=== PATIENT | female | born 1980 | race Caucasian/White ===

== ENCOUNTER 2022-03-06 18:22 | Emergency (ER) | payer BC, SELFPAY ==
[2022-03-06 18:37] VITALS: BP 108/76; PULSE 91; TEMP 36.2; O2SAT 99; BMI 22.6
--- NOTE | 2022-03-06 18:54 | ED.NAVMDI ---
HPI - Nausea/Vomiting/Diarrhea General Chief complaint: Nausea/Vomiting Stated complaint: Dehydration, cant keep anything down Time Seen by Provider: 03/06/22 18:28 History of Present Illness HPI Narrative: This 41-year-old female is in reporting diarrhea with some nausea and vomiting that began yesterday. She states that Ng she puts in her mouth comes out 1 way or another. She does report a dry mouth but does not have any fever or blood in the toilet. Prior to this she was in good health. She does report diffuse abdominal pain stent. She has not been on antibiotics recently. Related Data Home Medications Medication Instructions Recorded Confirmed gabapentin 600 mg tablet 600 mg PO TID 03/06/22 03/06/22 venlafaxine 150 mg tablet,extended 150 mg PO DAILY 03/06/22 03/06/22 release 24 hr Allergies Allergy/AdvReac Type Severity Reaction Status Date / Time Sulfa (Sulfonamide Allergy Intermediate Verified 03/06/22 18:42 Antibiotics) Review of Systems Status of ROS: Reports: 10 or more systems reviewed and unremarkable except as noted in History and below Narrative: Constitutional: No fevers, no weight gain or loss. Eyes: No discharge. No vision changes. HENT: No congestion, no sore throat, no ear pain. Cardiovascular: No chest pain, no palpitations. Respiratory: No shortness of breath, no wheezes, no cough. Gastrointestinal: Diffuse abdominal pain. Diarrhea with some nausea and vomiting. Genitourinary: No dysuria, no hematuria. Musculoskeletal: Normal range of motion. Skin: No rashes, no pruritis. Neurological: No dizziness, weakness, sensory change, speech change. Endo/Heme/Allergies: No bruising or bleeding. No polydipsia. Pysch: no suicidality, no anxiety, no insomnia. All other systems reviewed and are negative. PFSH PFS Social History Smoking Status: Never smoker How often do you have a drink containing alcohol: monthly or less AUDIT-C Alcohol total score: 1 Non-prescribed substance use: denies use Exam Narrative: Exam Narrative: Constitutional: Well-developed, well-nourished, no acute distress. HEENT: Normocephalic, atraumatic. Neck: Normal range of motion. Nontender. Supple. Heart: Regular. No murmurs. Normal rate. Intact distal pulses. Lungs: Clear to auscultation. No chest discomfort. No wheezes, rhonchi, or rales. Abdomen: Normal bowel sounds. Diffuse tenderness. She reports some tenderness with rebound but is not showing distinct rebound symptoms on exam. No particular tenderness when palpating at McBurney's point or over her gallbladder. Genitalia: Deferred. Back: No midline tenderness. Normal range of motion. Extremities: Normal range of motion. No injury. Skin: Intact. No rash. Warm. No erythema or pallor. Neurologic: No altered sensation. No weakness. Alert and oriented. Psychiatric: No suicidality. No anxiety or depression. No insomnia. Nursing notes and vitals signs are reviewed. Const: Vital Signs, click to edit/add: Vital Signs - 24 hr 03/06/22 18:37 Temperature 97.1 F L Pulse Rate [Pulse Oximeter] 91 Blood Pressure [Ri ght Upper Arm] 108/76 Pulse Oximetry 99 Oxygen Delivery Me thod Room Air Course Vital Signs Vital signs: Initial Vital Signs Temperature 97.1 F L 03/06/22 18:37 Temperature Source Temporal Artery Scan 03/06/22 18:37 Pulse Rate 91 03/06/22 18:37 Blood Pressure 108/76 03/06/22 18:37 Blood Pressure Mean 86 03/06/22 18:37 Blood Pressure Position Supine 03/06/22 18:37 Pulse Oximetry 99 03/06/22 18:37 Oxygen Delivery Method 03/06/22 18:37 Vital Signs Temperature 97.1 F L 03/06/22 18:37 Pulse Rate 91 03/06/22 18:37 Blood Pressure 108/76 03/06/22 18:37 Pulse Oximetry 99 03/06/22 18:37 Oxygen Delivery Method 03/06/22 18:37 Temperature 97.1 F L 03/06/22 18:37 Pulse Rate 91 03/06/22 18:37 Blood Pressure 108/76 03/06/22 18:37 Pulse Oximetry 99 03/06/22 18:37 Oxygen Delivery Method 03/06/22 18:37 MDM - Nausea/Vomiting/Diarrhea MDM Narrative Medical decision making narrative: This patient comes in nausea, vomiting, and diarrhea since yesterday. She was beginning to feel lightheaded. She does not report any fevers. I did discuss imaging options which the patient declined in a process of shared decision making. IV fluids and labs were drawn which returned with essentially normal findings. The patient received Zofran intravenously also. She states that she is feeling is okay to return home. She did receive a person Zofran. Lab Data Labs: Lab Results 03/06/22 03/06/22 Range/Units 19:20 19:20 WBC 7.45 (4.50-11.00) K/uL RBC 4.84 (4.00-5.20) m/uL Hgb 14.8 (12.0-16.0) gm/dL Hct 42.8 (33.0-51.0) % MCV 88 (80-100) fL MCH 31 (26-34) pg MCHC 35 (32-36) gm/dL RDW Coeff of [place] 12.7 (11.5-15.5) % Plt Count 244 (140-440) K/uL Neut % (Auto) 89.5 H (42.0-72.0) % Lymph % (Auto) 4.2 L (20-44) % [place] % (Auto) 5.9 (0.0-11.0) % Eos % (Auto) 0.0 (0.0-7.0) % Baso % (Auto) 0.3 (0.0-3.0) % Neut # (Auto) 6.70 (1.7-7.0) K/uL Lymph # (Auto) 0.30 L (0.90-2.90) K/uL [place] # (Auto) 0.40 (0.00-0.90) K/UL Eos # (Auto) 0.00 (0.00-0.50) K/uL Baso # (Auto) 0.02 (0.00-0.30) K/uL Abs Immat Gran (auto) 0.01 (0.00-0.30) K/uL Sodium 133 L (135-149) mmol/L Potassium 3.4 L (3.6-5.1) mmol/L Chloride 103 (96-114) mmol/L Carbon Dioxide 19 L (20-32) mmol/L BUN 16 (5-24) mg/dL Creatinine 0.9 (0.5-1.5) mg/dL Estimated Creat Clear 78.56 Estimated GFR 83 ml/min Glucose 131 H (60-115) mg/dL Calcium 9.5 (8.4-10.6) mg/dL Discharge Plan Discharge Clinical Impression: Gastroenteritis Patient Disposition: Home, Self-Care Condition: Improved Additional Instructions: Take medications as needed and indicated. Increase diet as tolerated. Follow up with MD or return if worsening. Prescriptions: No Action gabapentin 600 mg tablet 600 mg PO TID venlafaxine 150 mg tablet extended release 24hr 150 mg PO DAILY Follow Up/Referrals: Provider,Not a Local [Primary Care Provider] - Stand Alone Forms: [place] Info Instructions
[2022-03-06] MEDS: KETOROLAC 30 MG/ML inj IVP (19:28)
[2022-03-06] MEDS: ONDANSETRON 2 MG/ML inj 4 MG IVP (19:29)
[2022-03-06] MEDS: 0.9 % SODIUM CHLORIDE 1000 ml 1,000 ML IV (19:29)
[2022-03-06 19:31] LABS: Basophils Absolute Auto 0.02 K/uL (0.00-0.30); Basophils Percent Auto 0.3 % (0.0-3.0); Hematocrit 42.8 % (33.0-51.0); Hemoglobin* 14.8 gm/dL (12.0-16.0); Immature Granulocytes Abs Auto 0.01 K/uL (0.00-0.30); Lymphocytes Percent Auto 4.2 % (20-44); Mean Corpuscular HGB Conc 35 gm/dL (32-36); Mean Corpuscular Hemoglobin 31 pg (26-34); Mean Corpuscular Volume 88 fL (80-100); Monocytes Percent Auto 5.9 % (0.0-11.0); Neutrophils Percent Auto 89.5 % (42.0-72.0); Platelet Count* 244 K/uL (140-440); RDW Coefficient of Variation % 12.7 % (11.5-15.5); Red Blood Count 4.84 m/uL (4.00-5.20); White Blood Count* 7.45 K/uL (4.50-11.00)
[2022-03-06 19:45] LABS: Slide Review Reflex No
[2022-03-06 19:46] LABS: Chloride* 103 mmol/L (96-114); Potassium* 3.4 mmol/L (3.6-5.1); Sodium* 133 mmol/L (135-149)
[2022-03-06 19:48] LABS: Creatinine* 0.9 mg/dL (0.5-1.5); Est. Creatinine Clearance* 78.56; Estimated Glomerular Filt Rate 83 ml/min
[2022-03-06 19:49] LABS: Blood Urea Nitrogen* 16 mg/dL (5-24); Calcium* 9.5 mg/dL (8.4-10.6); Carbon Dioxide* 19 mmol/L (20-32); Glucose* 131 mg/dL (60-115)
== END 2022-03-06 20:42 | disposition home or self-care (01) ==
PROVIDERS: Emergency Provider Emergency Medicine Emergency Medical Services
DX: K52.9 Noninfective gastroenteritis and colitis, unspecified (principal)
CPT/HCPCS: 36415; 80048; 85025; 96361; 96374; 96375; 99284; J1885; J2405; J7030